=== PATIENT | female | born 1945 | race Caucasian/White ===

== ENCOUNTER → 2017-08-09 | Outpatient (REF) | payer MEDICARE | LOC: M LAB REF 08-10 12:10 | DX: N39.0 Urinary tract infection, site not specified (principal) | CPT/HCPCS: 87186 ==

== ENCOUNTER → 2017-09-10 | Outpatient (REF) | payer MEDICARE | LOC: M LAB REF 16:58 | DX: N39.0 Urinary tract infection, site not specified (principal) | CPT/HCPCS: 87186 ==